=== PATIENT | male | born 1990 | race Caucasian/White ===

== ENCOUNTER 2017-07-09 17:57 | Emergency (ER) | payer OTHER ==
[~2017-07-09] VITALS: Ht 182.9 cm; Wt 108.1 kg
[2017-07-09 18:00] VITALS: TEMP 36.7; Ht 182.9 cm; Wt 108.1 kg
--- NOTE | 2017-07-09 18:13 | EMERGENCY ROOM VISIT NOTE ---
History First contact with patient: 18:04 Chief Complaint: SHOULDER PAIN Stated Complaint: RT CLAVICLE/SHOULDER PAIN History of Present Illness The patient is a 26 year old male who presents to the Emergency Room with complaints of an injury to his right clavicle. The patient reports that he fell approximately 2 hours ago and landed on his right elbow, injuring his right shoulder. He rates his discomfort a 5/10 and states that he only has pain with lifting the arm up. He denies pain at rest. He denies numbness or weakness of the right arm. The patient reports he contacted some friends were physical therapist who thinks that he may have fractured his clavicle. Review of Systems A complete 6 point review of systems was reviewed with the patient with pertinent positives and negatives as per history of present illness. All else were negative. Past Medical/Surgical History Medical Problems: (1) No significant active problems Social History Smoking Status: Never Smoker Occupation Status: [employer] student Physical Exam Vital Signs Date Time Temp Pulse Resp B/P (MAP) Pulse Ox O2 Delivery O2 Flow Rate FiO2 07/09/17 19:29 95 18 129/70 94 Room Air 07/09/17 18:00 36.7 106 18 147/85 96 Room Air Physical Exam VITALS: Vitals are noted on the nurse's note and reviewed by myself. Vital signs stable. GENERAL: This is a 26-year-old male, in no acute distress, nondiaphoretic, well- developed well-nourished. SKIN: No lacerations or abrasions. HEART: Regular rate and rhythm without murmurs gallops or rubs. LUNGS: Clear to auscultation bilaterally without wheezes, rales or rhonchi. MUSCULOSKELETAL: There is depression of the right shoulder compared to the left. No significant tenderness to palpation of the clavicle, although patient does report subjective pain with range of motion. [employer] strength 5/5. Radial pulse 2+. NEURO: Patient was alert and oriented to person place and time. Distal sensation intact. Medical Decision & Procedures ER Provider Diagnostic Interpretation: RIGHT CLAVICLE 2 VIEWS CLINICAL HISTORY: Right clavicular injury. FINDINGS: 2 views of the right clavicle are obtained. No prior studies are available for comparison at the time of dictation. The skeletal structures are well mineralized. There is no radiographic evidence of right clavicular fracture. The sternoclavicular joint appears maintained. There is superior subluxation of the clavicular head at the acromioclavicular joint. The overlying soft tissues are normal as visualized. The imaged upper lobe lung parenchyma appears clear. IMPRESSION: 1. There is no radiographic evidence of right clavicular fracture. 2. There is superior subluxation of the clavicular head at the acromioclavicular joint. Correlate clinically for evidence of shoulder separation. Electronically signed by: Garrett Shelby M.D. Medical Decision Differential diagnosis includes fracture, dislocation, AC separation, sprain, among others. The patient is a 26-year-old male who presents today complaining of right shoulder pain after a fall. X-ray showed findings consistent with an AC separation. Patient was placed in an arm sling and given information for orthopedic follow up. Conservative measures were discussed. The patient verbalized understanding of my assessment and treatment plan and was discharged home in good condition. Medication Reconcilliation Current Medication List: was personally reviewed by me Blood Pressure Screening Patient's blood pressure: Normal blood pressure Impression Primary Impression: AC separation Departure Information Dispostion Home / Self-Care Condition GOOD Referrals No Doctor, Assigned (PCP) Rjaat Cordova M.D. Patient Instructions [facility] Additional Instructions You have been treated in the Emergency Department for a shoulder separation. For pain control, you can use the following [id number] medicines (if >12 yo): - Regular strength (325mg/tab) Tylenol (acetaminophen) 2 tabs every 4-6 hours as needed. Do not exceed 12 tablets in a 24 hour period. Avoid taking more than 4 grams (4000 mg) of Tylenol per day. This includes any other sources of acetaminophen you may take on a regular basis. - Regular strength (200 mg/tab) Advil (ibuprofen) 1-2 tabs every 4-6 hours as needed. Do not exceed a dose of 3200 mg per day. If this is a recent injury (<24 hrs), ice can be applied to the area of pain for the first 3 days to help decrease pain and inflammation. You have been provided the number for an Orthopaedic Surgeon. You should call this number as soon as possible to establish a follow-up visit from today's Emergency Department visit. Wear the sling until evaluated by orthopedics. Make sure to remove your arm from the sling a few times a day to perform range of motion exercises. Return to the Emergency Department if your current symptoms worsen despite treatment course outlined above, or if you develop any of the following symptoms : intractable pain despite aforementioned treatment course or new onset of numbness or tingling of the arm. Problem Qualifiers Primary Impression: AC separation Encounter type: initial encounter Laterality: right Qualified Codes: S43.101A - Unspecified dislocation of right acromioclavicular joint, initial encounter
--- NOTE | 2017-07-09 19:04 | DIAGNOSTIC IMAGING REPORT ---
RIGHT CLAVICLE 2 VIEWS CLINICAL HISTORY: Right clavicular injury. FINDINGS: 2 views of the right clavicle are obtained. No prior studies are available for comparison at the time of dictation. The skeletal structures are well mineralized. There is no radiographic evidence of right clavicular fracture. The sternoclavicular joint appears maintained. There is superior subluxation of the clavicular head at the acromioclavicular joint. The overlying soft tissues are normal as visualized. The imaged upper lobe lung parenchyma appears clear. IMPRESSION: 1. There is no radiographic evidence of right clavicular fracture. 2. There is superior subluxation of the clavicular head at the acromioclavicular joint. Correlate clinically for evidence of shoulder separation. Electronically signed by: Garrett Shelby M.D. 07/09/2017 7:03 PM Dictated Date/Time: 07/09/2017 7:02 PM
[2017-07-09 19:29] VITALS: BP 129/70; PULSE 95; O2SAT 94
== END 2017-07-09 19:41 | disposition home or self-care (01) ==
LOC: C.EDB 17:58 → C.EDD 19:41
DX: S43.101A Unspecified dislocation of right acromioclavicular joint, initial encounter (principal); W19.XXXA Unspecified fall, initial encounter